=== PATIENT | male | born 1985 | race Caucasian/White ===

== ENCOUNTER 2020-02-10 22:49 | Observation (INO) | payer SELFPAY ==
--- NOTE | 2020-02-10 22:58 | EDM.PDOC ---
ED HPI GENERAL MEDICAL PROBLEM - General Chief Complaint: Drug or Alcohol Abuse Stated Complaint: POSSIBLE OVERDOSE Time Seen by Provider: 02/10/20 22:51 Source of Information: Reports: Patient History Limitations: Reports: No Limitations - History of Present Illness INITIAL COMMENTS - FREE TEXT/NARRATIVE: HISTORY OF PRESENT ILLNESS: Patient is a 34-year-old male who presents with possible overdose. Patient admits to using heroin less than an hour prior to arrival. He feels as though it may have been laced with fentanyl. He admits to IV drug abuse. States he only used "a small amount." Found unresponsive by family members. His sister is a border patrol officer and administered 2 doses of intranasal Narcan and initiated CPR. Patient was alert and oriented x4 when EMS arrived. He had no hypoxic events in route and has been in normal mental status. He denies any suicidal or homicidal ideation. Has mild chest wall soreness at the site of chest compressions but no other retrosternal chest pain. No dyspnea. Denies any trauma or falls. No neck or back pain. No head injury. Denies any weakness or paresthesias. No present changes in vision or speech. REVIEW OF SYSTEMS: Other than the symptoms associated with the present events, the following is reported with regard to recent health: General: (-) fever. HENT: (-) congestion. Respiratory: (-) cough. Cardiovascular: (+) mild chest wall pain. GI: (-) abdominal pain. : (-) urinary complaints. Musculoskeletal: (-) other aches or pains. Endocrine: (-) generalized weakness. Neurological: (-) localized weakness. Skin: scratches to abdomen from chronic scratching PAST MEDICAL HISTORY: reviewed as per nursing notes SOCIAL HISTORY: reviewed as per nursing notes, MEDICATIONS: Per nurse's note ALLERGIES: Per nurse's note, reviewed by me PHYSICAL EXAMINATION: GENERALIZED APPEARANCE: well developed, well nourished in no distress VITAL SIGNS: Per nurse's note, reviewed by me SKIN: Warm, dry; (-) cyanosis; . track cooper. no cellulitis. linear excoriations to abdomen from chronic scratching. mild redness to anterior chest overlying sternum at site of chest compressions. HEAD: (-) scalp swelling, (-) tenderness. EYES: (-) conjunctival pallor, (-) scleral icterus. ENMT: (-) stridor; mucous membranes moist. NECK: (-) tenderness, (-) stiffness, CHEST AND RESPIRATORY: (-) rales, (-) rhonchi, (-) wheezes; breath sounds equal bilaterally. see skin exam. no crepitus, step off or deformity. HEART AND CARDIOVASCULAR: (-) irregularity; (-) murmur, (-) gallop. ABDOMEN AND GI: Soft; (-) tenderness, (-) guarding, (-) rebound, (-) palpable masses, EXTREMITIES: (-) deformity, (-) edema. NEURO AND PSYCH: Alert. Cranial nerves grossly intact; strength symmetric. oriented x 4. nml speech. 5/5+ strength. sensation intact. DIAGNOSTICS: EKG: st at 122 bpm. nml axis no acute st elevation, early repolarization. CXR : as read by radiologist, reviewed by myself Labs reviewed EMERGENCY DEPARTMENT COURSE AND TREATMENT: Patient's condition remained stable during Emergency Department evaluation. He remained awake, alert oriented. Pt concerned he may rebound and requesting observation. As he will likely require minimum of 6 hours of observation, due to 2 doses of Narcan being administered, I feel this is reasonable. Case d/w Dr. Cade who kindly agrees to admit. PLAN AND FOLLOW-UP: Admit chest Pain Score (Numeric/FACES): 2 - Related Data Allergies Allergy/AdvReac Type Severity Reaction Status Date / Time No Known Allergies Allergy Verified 02/10/20 23:02 Home Meds: Home Meds . [No Known Home Meds] 02/10/20 [History] ED ROS GENERAL - Review of Systems Review Of Systems: See Below (see dictation) ED EXAM, GENERAL - Physical Exam Exam: See Below (see dictation) Course - Vital Signs Last Recorded V/S: Last Vital Signs Temp 97.8 F 02/10/20 23:20 Pulse 123 H 02/10/20 23:50 Resp 18 02/10/20 23:50 BP 129/82 02/10/20 23:50 Pulse Ox 95 02/10/20 23:50 - Orders/Labs/Meds Orders: Active Orders 24 hr Category Date Time Status Patient Status [ADT] Stat ADT 02/10/20 23:55 Active EKG Documentation Completion [RC] STAT Care 02/10/20 22:51 Active Labs: Laboratory Tests 02/10/20 02/10/20 02/10/20 Range/Units 23:00 23:00 23:22 WBC 6.63 (4.0-11.0) K/uL RBC 4.57 (4.50-5.90) M/uL Hgb 13.4 (13.0-17.0) g/dL Hct 40.4 (38.0-50.0) % MCV 88.4 (80.0-98.0) fL MCH 29.3 (27.0-32.0) pg MCHC 33.2 (31.0-37.0) g/dL RDW Std Deviation 45.0 (28.0-62.0) fl RDW Coeff of Mike 14 (11.0-15.0) % Plt Count 164 (150-400) K/uL MPV 9.00 (7.40-12.00) fL Neut % (Auto) 80.8 H (48.0-80.0) % Lymph % (Auto) 15.8 L (16.0-40.0) % [place] % (Auto) 2.9 (0.0-15.0) % Eos % (Auto) 0.3 (0.0-7.0) % Baso % (Auto) 0.2 (0.0-1.5) % Neut # (Auto) 5.4 (1.4-5.7) K/uL Lymph # (Auto) 1.1 (0.6-2.4) K/uL [place] # (Auto) 0.2 (0.0-0.8) K/uL Eos # (Auto) 0.0 (0.0-0.7) K/uL Baso # (Auto) 0.0 (0.0-0.1) K/uL Nucleated RBC % 0.0 /100WBC Nucleated RBCs # 0 K/uL Sodium 137 (136-148) mmol/L Potassium 3.4 L (3.5-5.1) mmol/L Chloride 99 (98-107) mmol/L Carbon Dioxide 28.6 (21.0-32.0) mmol/L BUN 12 (7.0-18.0) mg/dL Creatinine 1.1 (0.8-1.3) mg/dL Est Cr Clr Drug Dosing 103.86 mL/min Estimated GFR (MDRD) > 60.0 ml/min Glucose 143 H (74-106) mg/dL Calcium 8.6 (8.5-10.1) mg/dL Salicylates 1.6 (0-20) mg/dL Urine Opiates Screen NEGATIVE (NEGATIVE) Ur Oxycodone Screen NEGATIVE (NEGATIVE) Urine Methadone Screen NEGATIVE (NEGATIVE) Acetaminophen <2.0 ug/mL Ur Barbiturates Screen NEGATIVE (NEGATIVE) Ur Phencyclidine Scrn NEGATIVE (NEGATIVE) Ur Amphetamine Screen NEGATIVE (NEGATIVE) U Methamphetamines Scrn NEGATIVE (NEGATIVE) U Benzodiazepines Scrn NEGATIVE (NEGATIVE) U Cocaine Metab Screen NEGATIVE (NEGATIVE) U Marijuana (THC) Screen NEGATIVE (NEGATIVE) Ethyl Alcohol < 3.0 mg/dL Meds: Medications Discontinued Medications Generic Name Dose Route Start Last Admin Trade Name Freq PRN Reason Stop Dose Admin Acetaminophen 1,000 mg 02/10/20 23:51 02/10/20 23:57 Tylenol Extra Strength PO 02/10/20 23:52 1,000 mg ONETIME ONE Administration Departure - Departure Time of Disposition: 00:09 Disposition: Refer to Observation Condition: Good Clinical Impression: Drug abuse, Overdose - Discharge Information Sepsis Event Note - Focused Exam Vital Signs: Vital Signs Temp Pulse Resp BP Pulse Ox 02/10/20 23:50 123 H 18 129/82 95 02/10/20 23:38 122 H 12 137/65 94 L 02/10/20 23:20 97.8 F 120 H 14 110/77 95 02/10/20 23:05 123 H 14 110/75 94 L 02/10/20 22:51 97 F 127 H 20 135/85 97 Date Exam was Performed: 02/11/20 Time Exam was Performed: 00:07 - My Orders Last 24 Hours: My Active Orders 02/10/20 22:51 EKG Documentation Completion [RC] STAT 02/10/20 23:55 Patient Status [ADT] Stat - Assessment/Plan Last 24 Hours: My Active Orders 02/10/20 22:51 EKG Documentation Completion [RC] STAT 02/10/20 23:55 Patient Status [ADT] Stat
[2020-02-10 23:25] LABS: ACETAMINOPHEN <2.0 ug/mL; BLOOD UREA NITROGEN,BUN 12 mg/dL (7.0-18.0); CARBON DIOXIDE,CO2 28.6 mmol/L (21.0-32.0); CHLORIDE,CL 99 mmol/L (98-107); GLUCOSE RANDOM 143 mg/dL (74-106); POTASSIUM,K 3.4 mmol/L (3.5-5.1); SODIUM,NA 137 mmol/L (136-148)
--- NOTE | 2020-02-10 23:27 | CR ---
INDICATION: Drug overdose TECHNIQUE: Portable upright AP view of the chest. COMPARISON: None FINDINGS: The lungs are clear. There is no sizable pleural effusion or pneumothorax. The cardiomediastinal silhouette is normal. The visualized osseous structures are unremarkable. IMPRESSION: No acute intrathoracic process. Dictated by Andrew Goodrich MD @ Feb 10 2020 11:24PM Signed by Dr. Andrew Goodrich @ Feb 10 2020 11:24PM
[2020-02-10] MEDS ORDERED: Acetaminophen 500 MG Tab PO ONE (23:51)
[2020-02-11] MEDS ORDERED: Acetaminophen 325 MG Tab PO PRN (01:16)
--- NOTE | 2020-02-11 09:03 | PCM.HP.2 ---
H&P History of Present Illness - General Date of Service: 02/11/20 Admit Problem/Dx: Admission Diagnosis/Problem Admission Diagnosis/Problem Overdose of illicit drug - History of Present Illness Initial Comments - Free Text/Narative: 34 yo male with pmh of heroin abuse who presented to the ED following heroin overdose. Patient had moved up her from [place] to be with family as he attempts to quit heroin. He normally takes 1/2 a gram a day. He had not taking anything for several days before stating he took a little bit last night. He became unresponsive and her sister who is a chief lending officer initiated CPR and gave two doses of nasal narcan for which he woke up after. He denies any shortness of breath, fever or chest pain. Headache Pain Score (Numeric/FACES): 5 chest Pain Score (Numeric/FACES): 2 - Related Data Allergies/Adverse Reactions: Allergies Allergy/AdvReac Type Severity Reaction Status Date / Time No Known Allergies Allergy Verified 02/11/20 00:37 Home Medications: Home Meds . [No Known Home Meds] 02/10/20 [History] Past Medical History Gastrointestinal History: Reports: None - Infectious Disease History Infectious Disease History: Reports: Chicken Pox - Past Surgical History GI Surgical History: Reports: Appendectomy Social & Family History - Family History Family Medical History: Noncontributory - Tobacco Use Smoking Status *Q: Current Every Day Smoker Years of Tobacco use: 20 Packs/Tins Daily: 0.5 - Caffeine Use Caffeine Use: Reports: Soda - Recreational Drug Use Recreational Drug Use: Yes Drug Use in Last 12 Months: Yes Recreational Drug Type: Reports: Heroin Recreational Drug Use Frequency: Socially H&P Review of Systems - Review of Systems: Review Of Systems: Comprehensive ROS is negative, except as noted in HPI. Exam - Exam Exam: See Below - Vital Signs Vital Signs: Last Vital Signs Temp 36.4 C 02/11/20 07:20 Pulse 75 02/11/20 07:20 Resp 18 02/11/20 07:20 BP 119/78 02/11/20 07:20 Pulse Ox 99 02/11/20 07:20 Weight: 80.603 kg - Exam General: Alert, Oriented HEENT: Mucosa Moist & [place] Neck: Supple, Trachea Midline Lungs: Clear to Auscultation, Normal Respiratory Effort Cardiovascular: Regular Rate, Regular Rhythm GI/Abdominal Exam: Normal Bowel Sounds, Soft, Non-Tender Extremities: Non-Tender, No Pedal Edema Skin: Warm, Dry, Intact Neurological: Cranial Nerves Intact - Patient Data Lab Results Last 24 hrs: Laboratory Results - last 24 hr 02/10/20 02/10/20 02/10/20 Range/Units 23:00 23:00 23:22 WBC 6.63 (4.0-11.0) K/uL RBC 4.57 (4.50-5.90) M/uL Hgb 13.4 (13.0-17.0) g/dL Hct 40.4 (38.0-50.0) % MCV 88.4 (80.0-98.0) fL MCH 29.3 (27.0-32.0) pg MCHC 33.2 (31.0-37.0) g/dL RDW Std Deviation 45.0 (28.0-62.0) fl RDW Coeff of Mike 14 (11.0-15.0) % Plt Count 164 (150-400) K/uL MPV 9.00 (7.40-12.00) fL Neut % (Auto) 80.8 H (48.0-80.0) % Lymph % (Auto) 15.8 L (16.0-40.0) % [place] % (Auto) 2.9 (0.0-15.0) % Eos % (Auto) 0.3 (0.0-7.0) % Baso % (Auto) 0.2 (0.0-1.5) % Neut # (Auto) 5.4 (1.4-5.7) K/uL Lymph # (Auto) 1.1 (0.6-2.4) K/uL [place] # (Auto) 0.2 (0.0-0.8) K/uL Eos # (Auto) 0.0 (0.0-0.7) K/uL Baso # (Auto) 0.0 (0.0-0.1) K/uL Nucleated RBC % 0.0 /100WBC Nucleated RBCs # 0 K/uL Sodium 137 (136-148) mmol/L Potassium 3.4 L (3.5-5.1) mmol/L Chloride 99 (98-107) mmol/L Carbon Dioxide 28.6 (21.0-32.0) mmol/L BUN 12 (7.0-18.0) mg/dL Creatinine 1.1 (0.8-1.3) mg/dL Est Cr Clr Drug Dosing 103.86 mL/min Estimated GFR (MDRD) > 60.0 ml/min Glucose 143 H (74-106) mg/dL Calcium 8.6 (8.5-10.1) mg/dL Salicylates 1.6 (0-20) mg/dL Urine Opiates Screen NEGATIVE (NEGATIVE) Ur Oxycodone Screen NEGATIVE (NEGATIVE) Urine Methadone Screen NEGATIVE (NEGATIVE) Acetaminophen <2.0 ug/mL Ur Barbiturates Screen NEGATIVE (NEGATIVE) Ur Phencyclidine Scrn NEGATIVE (NEGATIVE) Ur Amphetamine Screen NEGATIVE (NEGATIVE) U Methamphetamines Scrn NEGATIVE (NEGATIVE) U Benzodiazepines Scrn NEGATIVE (NEGATIVE) U Cocaine Metab Screen NEGATIVE (NEGATIVE) U Marijuana (THC) Screen NEGATIVE (NEGATIVE) Ethyl Alcohol < 3.0 mg/dL Result Diagrams: 02/10/20 23:00 02/10/20 23:00 Sepsis Event Note - Evaluation Sepsis Screening Result: No Definite Risk - Focused Exam Vital Signs: Vital Signs Temp Pulse Resp BP Pulse Ox 02/11/20 07:20 36.4 C 75 18 119/78 99 02/11/20 05:18 36.6 C 77 18 108/69 98 02/11/20 00:37 37.2 C 108 H 17 132/73 96 02/11/20 00:30 36.1 C 115 H 16 132/76 96 02/10/20 23:50 123 H 18 129/82 95 02/10/20 23:38 122 H 12 137/65 94 L 02/10/20 23:20 36.6 C 120 H 14 110/77 95 02/10/20 23:05 123 H 14 110/75 94 L 02/10/20 22:51 36.1 C 127 H 20 135/85 97 Date Exam was Performed: 02/11/20 Time Exam was Performed: 08:55 Problem List Initiated/Reviewed/Updated: Yes Orders Last 24hrs: Active Orders 24 hr Category Date Time Status Patient Status [ADT] Stat ADT 02/10/20 23:55 Active EKG Documentation Completion [RC] STAT Care 02/10/20 22:51 Active Overnight Pulse Oximetry [RC] Click to Edit Care 02/11/20 01:15 Active Ready for Discharge [RC] PER UNIT ROUTINE Care 02/11/20 08:54 Active Telemetry Monitoring [Cardiac Monitoring] [RC] Q8H Care 02/11/20 01:21 Active Regular Diet [DIET] Diet 02/11/20 Breakfast Active Acetaminophen [Tylenol] Med 02/11/20 01:16 Active 325 mg PO Q6H PRN Medication Orders Acetaminophen (Tylenol) 325 mg PO Q6H PRN PRN Reason: Headache Assessment/Plan Comment:: 34 yo male admitted for opioid overdose. HE was monitored overnight with no events. This morning he is requesting discharge. He was counselled on narcotic cessation. I suggested Suboxone but the patient is not that interested in drug assisted therapy. He plans on getting a new phone number and states all his heroin that he brought from [place] has been disposed. He was discharged home to have follow up with [facility].
== END 2020-02-11 10:50 | disposition home or self-care (01) ==
LOC: MW.ED 22:49 → MW.MS 23:55
PROVIDERS: ADMIT Internal Medicine; ATTEND Internal Medicine
DX: T40.1X1A Poisoning by heroin, accidental (unintentional), initial encounter (principal); F17.210 Nicotine dependence, cigarettes, uncomplicated
CPT/HCPCS: 36415; 71045; 80048; 80305; 80307; 85025; 93005; A9270; 99284

== ENCOUNTER 2020-09-29 13:56 | Inpatient (IN) | payer SELFPAY ==
[2020-09-29] MEDS ORDERED: Sodium Chloride 0.9% 2.5 ML Syringe FLUSH PRN (14:06)
[2020-09-29] MEDS ORDERED: Sodium Chloride 0.9% 10 ML Syringe FLUSH PRN (14:06)
[2020-09-29] MEDS ORDERED: Lactated Ringers 1,000 ML IV ONE ×2 (14:07)
--- NOTE | 2020-09-29 14:08 | EDM.PDOC ---
ED HPI GENERAL MEDICAL PROBLEM - General Chief Complaint: Trauma Stated Complaint: EMS ARRIVAL Time Seen by Provider: 09/29/20 13:56 Source of Information: Reports: Patient, EMS, Police History Limitations: Reports: Altered Mental Status - History of Present Illness INITIAL COMMENTS - FREE TEXT/NARRATIVE: This is a 35-year-old male with no past medical history presenting with a suspected opiate overdose. He arrives by ambulance. He was reportedly found unresponsive, not breathing by bystanders. Bystanders packed ice packs around him and called 911. When police arrived, they noted that he was apneic and started chest compressions. When paramedics arrived, the patient did have a pulse but was in respiratory arrest. Paramedics administered 1 mg of intranasal naloxone and the patient woke up and started breathing more normally. He reports injecting heroin and fentanyl into his arm around 1320. He arrives the emergency department complaining of feeling nauseated and shaky but denies any pain, recent illness, or injury. ROS: A 10-point review of systems was negative, except as noted in the HPI (or in the ROS section of this note). Past medical history: Reviewed, no additional pertinent history. Surgical history: Reviewed in system, no additional pertinent history. Social history: Reviewed in system, no additional pertinent history. Family history: Reviewed in system, no additional pertinent history. PHYSICAL EXAM Vital signs reviewed. Nursing notes reviewed. Constitutional: Awake, alert, non-distressed. Head: Normocephalic, atraumatic. Eyes: Pupils 3 mm bilaterally, EOMI, conjunctiva normal, no discharge, no scleral icterus. Ears, Nose, Throat: External ears and nose normal, moist oral mucosa. Cardiovascular: Tachycardic, 2+ radial pulse, capillary refill less than 2 seconds. Pulmonary: normal work of breathing, no accessory muscle use. Abdomen/GI: Soft, nontender, nondistended, no guarding or rigidity, no masses. Musculoskeletal: No deformities. Normal passive range of motion of all joints. Integumentary: Appropriate color for ethnicity, warm, dry, no pallor or jaundice, no rash. Neurologic: Alert, answering questions appropriately, normal speech, no facial droop, moving all extremities well. Psychiatric: Appropriate mood and affect, normal thought process. This patient was seen and evaluated during the 2019 SARS-CoV-2 novel coronavirus pandemic period. Community viral transmission is ongoing at time of this encounter and the emergency department is operating under pandemic response procedures. - Related Data Allergies Allergy/AdvReac Type Severity Reaction Status Date / Time No Known Allergies Allergy Verified 09/29/20 14:06 Home Meds: Home Meds . [No Known Home Meds] 02/10/20 [History] Past Medical History Gastrointestinal History: Reports: None - Infectious Disease History Infectious Disease History: Reports: Chicken Pox - Past Surgical History GI Surgical History: Reports: Appendectomy Social & Family History - Family History Family Medical History: No Pertinent Family History - Caffeine Use Caffeine Use: Reports: Soda Review of Systems - Review of Systems Review Of Systems: See Below ED EXAM, GENERAL - Physical Exam Exam: See Below #1 Interpretation EKG Interpretation Comments: 12-Lead ECG Interpretation Acquired: 2:28 PM Rhythm: Sinus tachycardia Rate: 118 bpm Carter: Normal Intervals: Normal Ectopy: None RV Strain: No obvious RV strain pattern. ST Segments/T-Waves: No notable changes Acute Ischemic Changes: None apparent Interpretation: No STEMI Course - Vital Signs Text/Narrative:: 35-year-old male presenting after a likely opiate overdose. Upon arrival to the emergency department patient is tachycardic, jittery, and nauseated. Differential diagnosis includes but is not limited to: Opiate overdose, alcohol intoxication, seizure, suicide attempt, electrolyte disturbance, arrhythmia, cardiac arrest, etc. He appears to be in opioid withdrawal after receiving naloxone. Moved over to the ED bed. IV access established, noted to be mildly hypothermic by core temperature, he was packed in ice by bystanders. We administered 2 L of warmed IV fluids and placed him on the bear hugger with warm blankets. He is nauseated and we will give him ondansetron and some haloperidol to help with his withdrawal symptoms. Labs sent off. Twelve-lead EKG shows sinus tachycardia, no ischemia 3:03 PM: CBC reassuring. Lactate is 9.5. Metabolic panel shows creatinine of 1.9, BUN 29, carbon dioxide 19.7. Glucose 119. CK 604, troponin 0 0.084, AST 876, ALT 95. Alcohol is undetectably low. Awaiting chest x-ray read. We will plan to recheck troponin, CK, metabolic panel, and lactate after fluids. 3:25 PM: Chest x-ray shows diffuse airspace disease on the right favoring post CPR pulmonic contusion versus pneumonia. 3:43 PM: We are redrawing labs. Lactate is down from 9.5-3.2. Patient is resting comfortably. 1650: Lactate down to 3.2. Troponin essentially unchanged. Creatinine down from 1.9 to 1.4. AST/ALT improving. CK down from 604 to 432. 5:34 PM: Patient is mildly hypoxic to the low 90s. He is required nasal cannula oxygen. His chest x-ray was concerning for possible pulmonary contusion after receiving CPR. With his laboratory abnormalities including elevated troponin and mild hypoxia, I would favor admission to the hospital and overnight observation. Page out to the hospitalist Dr. Cade, Covid test pending. 5:40 PM: COVID testing returned positive. Patient continues to require low-flow nasal cannula oxygen. I discussed the case with Dr. Silver Cade by phone who agrees to admit the patient to ICU on observation status. Last Recorded V/S: Last Vital Signs Temp 35.8 C L 09/29/20 13:56 Pulse 112 H 09/29/20 15:42 Resp 18 09/29/20 15:42 BP 98/52 L 09/29/20 15:42 Pulse Ox 95 09/29/20 15:42 - Orders/Labs/Meds Orders: Active Orders 24 hr Category Date Time Status Admission Status [Patient Status] [ADT] Stat ADT 09/29/20 17:39 Active Cardiac Monitoring [RC] . DIRECTED Care 09/29/20 14:06 Active EKG 12 Lead [EKG Documentation Completion] [RC] STAT Care 09/29/20 14:07 Active Pulse Oximetry [RC] ASDIRECTED Care 09/29/20 14:06 Active Sodium Chloride 0.9% [Saline Flush] Med 09/29/20 14:06 Active 10 ml FLUSH ASDIRECTED PRN Sodium Chloride 0.9% [Saline Flush] Med 09/29/20 14:06 Active 2.5 ml FLUSH ASDIRECTED PRN Saline Lock Insert [OM.PC] Stat Oth 09/29/20 14:06 Ordered Medication Orders Sodium Chloride (Saline Flush) 10 ml FLUSH ASDIRECTED PRN PRN Reason: Keep Vein Open Last Admin: 09/29/20 14:20 Dose: 10 ml Documented by: ESTELA Sodium Chloride (Saline Flush) 2.5 ml FLUSH ASDIRECTED PRN PRN Reason: Keep Vein Open Last Admin: 09/29/20 14:20 Dose: 2.5 ml Documented by: ESTELA Labs: Laboratory Tests 09/29/20 09/29/20 09/29/20 Range/Units 14:00 14:00 14:00 WBC 10.37 (4.0-11.0) K/uL RBC 5.31 (4.50-5.90) M/uL Hgb 16.0 (13.0-17.0) g/dL Hct 49.5 (38.0-50.0) % MCV 93.2 (80.0-98.0) fL MCH 30.1 (27.0-32.0) pg MCHC 32.3 (31.0-37.0) g/dL RDW Std Deviation 44.3 (28.0-62.0) fl RDW Coeff of Mike 13 (11.0-15.0) % Plt Count 256 (150-400) K/uL MPV 10.00 (7.40-12.00) fL Neut % (Auto) 74.2 (48.0-80.0) % Lymph % (Auto) 18.8 (16.0-40.0) % [place] % (Auto) 6.2 (0.0-15.0) % Eos % (Auto) 0.5 (0.0-7.0) % Baso % (Auto) 0.3 (0.0-1.5) % Neut # (Auto) 7.7 H (1.4-5.7) K/uL Lymph # (Auto) 2.0 (0.6-2.4) K/uL [place] # (Auto) 0.6 (0.0-0.8) K/uL Eos # (Auto) 0.1 (0.0-0.7) K/uL Baso # (Auto) 0.0 (0.0-0.1) K/uL Nucleated RBC % 0.0 /100WBC Nucleated RBCs # 0 K/uL Lactate 9.5 H* (0.20-2.00) mmol/L Sodium 143 (136-148) mmol/L Potassium 4.6 (3.5-5.1) mmol/L Chloride 104 (98-107) mmol/L Carbon Dioxide 19.7 L (21.0-32.0) mmol/L BUN 29 H (7.0-18.0) mg/dL Creatinine 1.9 H (0.8-1.3) mg/dL Est Cr Clr Drug Dosing 56.03 mL/min Estimated GFR (MDRD) 40.5 ml/min Glucose 119 H (74-106) mg/dL Calcium 9.2 (8.5-10.1) mg/dL Total Bilirubin 0.3 (0.2-1.0) mg/dL AST 76 H (15-37) IU/L ALT 95 H (14-63) IU/L Alkaline Phosphatase 105 (46-116) U/L Creatine Kinase 604 H (26-308) U/L Troponin I 0.084 H* (0.000-0.056) ng/mL Total Protein 8.2 (6.4-8.2) g/dL Albumin 3.9 (3.4-5.0) g/dL Globulin 4.3 H (2.6-4.0) g/dL Albumin/Globulin Ratio 0.9 (0.9-1.6) Ethyl Alcohol < 3.0 mg/dL SARS-CoV-2 RNA (LYNNETTE) (NEGATIVE) 09/29/20 09/29/20 09/29/20 Range/Units 15:22 15:22 17:44 WBC (4.0-11.0) K/uL RBC (4.50-5.90) M/uL Hgb (13.0-17.0) g/dL Hct (38.0-50.0) % MCV (80.0-98.0) fL MCH (27.0-32.0) pg MCHC (31.0-37.0) g/dL RDW Std Deviation (28.0-62.0) fl RDW Coeff of Mike (11.0-15.0) % Plt Count (150-400) K/uL MPV (7.40-12.00) fL Neut % (Auto) (48.0-80.0) % Lymph % (Auto) (16.0-40.0) % [place] % (Auto) (0.0-15.0) % Eos % (Auto) (0.0-7.0) % Baso % (Auto) (0.0-1.5) % Neut # (Auto) (1.4-5.7) K/uL Lymph # (Auto) (0.6-2.4) K/uL [place] # (Auto) (0.0-0.8) K/uL Eos # (Auto) (0.0-0.7) K/uL Baso # (Auto) (0.0-0.1) K/uL Nucleated RBC % /100WBC Nucleated RBCs # K/uL Lactate 3.2 H* (0.20-2.00) mmol/L Sodium 142 (136-148) mmol/L Potassium 4.1 (3.5-5.1) mmol/L Chloride 108 H (98-107) mmol/L Carbon Dioxide 25.8 (21.0-32.0) mmol/L BUN 30 H (7.0-18.0) mg/dL Creatinine 1.4 H (0.8-1.3) mg/dL Est Cr Clr Drug Dosing 76.04 mL/min Estimated GFR (MDRD) 57.7 ml/min Glucose 147 H (74-106) mg/dL Calcium 8.3 L (8.5-10.1) mg/dL Total Bilirubin 0.2 (0.2-1.0) mg/dL AST 55 H (15-37) IU/L ALT 71 H (14-63) IU/L Alkaline Phosphatase 69 (46-116) U/L Creatine Kinase 432 H (26-308) U/L Troponin I 0.083 H* (0.000-0.056) ng/mL Total Protein 5.9 L (6.4-8.2) g/dL Albumin 2.9 L (3.4-5.0) g/dL Globulin 3.0 (2.6-4.0) g/dL Albumin/Globulin Ratio 1.0 (0.9-1.6) Ethyl Alcohol mg/dL SARS-CoV-2 RNA (LYNNETTE) POSITIVE H (NEGATIVE) Meds: Medications Generic Name Dose Route Start Last Admin Trade Name Carlos PRN Reason Stop Dose Admin Sodium Chloride 10 ml 09/29/20 14:06 09/29/20 14:20 Saline Flush FLUSH 10 ml ASDIRECTED PRN Administration Keep Vein Open Sodium Chloride 2.5 ml 09/29/20 14:06 09/29/20 14:20 Saline Flush FLUSH 2.5 ml ASDIRECTED PRN Administration Keep Vein Open Discontinued Medications Generic Name Dose Route Start Last Admin Trade Name Carlos PRN Reason Stop Dose Admin Haloperidol Lactate 5 mg 09/29/20 14:39 09/29/20 14:44 Haldol IM 09/29/20 14:40 5 mg ONETIME ONE Administration Lactated Ringer's 1,000 mls @ 999 mls/hr 09/29/20 14:07 09/29/20 14:17 Ringers, Lactated IV 09/29/20 15:07 999 mls/hr .BOLUS ONE Administration Lactated Ringer's 1,000 mls @ 999 mls/hr 09/29/20 14:07 09/29/20 14:18 Ringers, Lactated IV 09/29/20 15:07 999 mls/hr .BOLUS ONE Administration Ondansetron HCl 4 mg 09/29/20 14:18 09/29/20 14:21 Zofran IVPUSH 09/29/20 14:19 4 mg ONETIME ONE Administration Departure - Departure Time of Disposition: 17:34 Disposition: Refer to Observation Condition: Good Clinical Impression: Hypoxia Opioid overdose Qualifiers: Encounter type: initial encounter Injury intent: undetermined intent Qualified Code(s): T40.2X4A - Poisoning by other opioids, undetermined, initial encounter - Discharge Information Sepsis Event Note (ED) - Focused Exam Vital Signs: Vital Signs Temp Pulse Resp BP Pulse Ox 09/29/20 15:42 112 H 18 98/52 L 95 09/29/20 15:12 152 H 102/56 L 94 L 09/29/20 14:52 115 H 20 113/64 92 L 09/29/20 14:24 119 H 24 H 130/80 94 L 09/29/20 14:14 138/88 09/29/20 13:56 35.8 C L 135 H 28 H 92 L - My Orders Last 24 Hours: My Active Orders 09/29/20 14:06 Cardiac Monitoring [RC] . DIRECTED Pulse Oximetry [RC] ASDIRECTED Sodium Chloride 0.9% [Saline Flush] 10 ml FLUSH ASDIRECTED PRN Sodium Chloride 0.9% [Saline Flush] 2.5 ml FLUSH ASDIRECTED PRN Saline Lock Insert [OM.PC] Stat 09/29/20 14:07 EKG 12 Lead [EKG Documentation Completion] [RC] STAT 09/29/20 17:39 Admission Status [Patient Status] [ADT] Stat - Assessment/Plan Last 24 Hours: My Active Orders 09/29/20 14:06 Cardiac Monitoring [RC] . DIRECTED Pulse Oximetry [RC] ASDIRECTED Sodium Chloride 0.9% [Saline Flush] 10 ml FLUSH ASDIRECTED PRN Sodium Chloride 0.9% [Saline Flush] 2.5 ml FLUSH ASDIRECTED PRN Saline Lock Insert [OM.PC] Stat 09/29/20 14:07 EKG 12 Lead [EKG Documentation Completion] [RC] STAT 09/29/20 17:39 Admission Status [Patient Status] [ADT] Stat
[2020-09-29] MEDS ORDERED: Ondansetron 4 MG/2 ML SDV IVPUSH ONE (14:18)
[2020-09-29 14:38] LABS: BLOOD UREA NITROGEN,BUN 29 mg/dL (7.0-18.0); CARBON DIOXIDE,CO2 19.7 mmol/L (21.0-32.0); CHLORIDE,CL 104 mmol/L (98-107); GLUCOSE RANDOM 119 mg/dL (74-106); POTASSIUM,K 4.6 mmol/L (3.5-5.1); SODIUM,NA 143 mmol/L (136-148)
[2020-09-29] MEDS ORDERED: Haloperidol Lactate 5 MG/ML SDV IM ONE (14:39)
--- NOTE | 2020-09-29 15:17 | CR ---
INDICATION: Post CPR with chest pain COMPARISON: None TECHNIQUE: Single-view chest radiograph FINDINGS: TUBES AND LINES: None. HEART AND MEDIASTINUM: The heart size is normal. The mediastinal contour appears normal for patient age. LUNGS AND PLEURAL SPACES: Diffuse airspace disease on the right especially perihilar and right upper lobe.This probably represents pulmonic contusion associated with chest compressions though there are other possibilities such as pre-existing pneumonia or aspiration. I see no pleural effusion or pneumothorax. OSSEOUS STRUCTURES: I see no rib fractures. However, the anterior rib fractures that often occur in CPR or difficult to demonstrate on plain film IMPRESSION: 1. Diffuse airspace disease on the right favor post CPR pulmonic contusion though pre-existing disease such as pneumonia or aspiration are other possibilities. 2. No visible pleural effusion or pneumothorax. 3. I see no rib fractures. The anterior rib fractures that are most common with CPR are difficult to visualize by plain film. Dictated by Alexys Lane MD @ Sep 29 2020 3:13PM Signed by Dr. Alexys Lane @ Sep 29 2020 3:16PM
[2020-09-29 16:08] LABS: CARBON DIOXIDE,CO2 25.8 mmol/L (21.0-32.0); POTASSIUM,K 4.1 mmol/L (3.5-5.1)
[2020-09-29] MEDS ORDERED: Enoxaparin 40 MG/0.4 ML Syringe SUBCUT SCH (23:00)
[2020-09-29] MEDS ORDERED: Dexamethasone 4 MG Tab PO SCH (23:00)
--- NOTE | 2020-09-29 23:02 | PN ---
THC Physician - Brief Progress [id number]/02/2020 22:54[facility] Sara Shaver, [place] - [facility] ([facility]) - [facility]ALKATYKEN GUTIERREZEdwinDate of Service 09/29/2020 22:54HPI/Even ts of Note Case discussed with RN. 35 year old M found unresponsive and ACLS initiated in the field. Was treated with narcan with good response. Drug screen was positive for methamphetamine. Was not ed to have elevated LA and trops after CPR. LA improving with fluids.AA+O, moving all ext, following commands, protecting airwayCOVID positivePt being managed by the hospitlist at this time.Recs incllu de: hemodynamic monitoring, echo when available, trend Sajan, suplemental O2 PRN, encourage self pronin g, covid treatment protocol, low threshold for abx, follow cultures and LA, GI nd DVT prophylaxis, r eplace lyte as needed, glycemic monitoring, pain control, neuro checks, psych/detox eval when stableI nterventions Minor-Communication with other healthcare providers and/or family
[2020-09-29] MEDS ORDERED: REMDESIVIR 200 MG in Sodium Chloride 0.9% 250 ML IV ONE (23:11)
--- NOTE | 2020-09-29 23:11 | PCM.HP.2 ---
H&P History of Present Illness - General Admit Problem/Dx: Admission Diagnosis/Problem Admission Diagnosis/Problem Opioid overdose Chest Pain Score (Numeric/FACES): 6 - Related Data Allergies/Adverse Reactions: Allergies Allergy/AdvReac Type Severity Reaction Status Date / Time No Known Allergies Allergy Verified 09/29/20 20:15 Home Medications: Home Meds . [No Known Home Meds] 02/10/20 [History] Past Medical History Gastrointestinal History: Reports: None - Infectious Disease History Infectious Disease History: Reports: Chicken Pox - Past Surgical History GI Surgical History: Reports: Appendectomy Social & Family History - Family History Family Medical History: No Pertinent Family History - Tobacco Use Tobacco Use Status *Q: Current Every Day Tobacco User Years of Tobacco use: 15 Packs/Tins Daily: 1 - Caffeine Use Caffeine Use: Reports: Soda - Recreational Drug Use Recreational Drug Use: Yes Recreational Drug Type: Reports: Fentanyl, Heroin Exam - Vital Signs Vital Signs: Last Vital Signs Temp 36.8 C 09/29/20 20:13 Pulse 94 09/29/20 22:00 Resp 10 L 09/29/20 22:00 BP 113/58 L 09/29/20 22:00 Pulse Ox 98 09/29/20 22:00 Weight: 80.876 kg - Patient Data Lab Results Last 24 hrs: Laboratory Results - last 24 hr 09/29/20 09/29/20 09/29/20 Range/Units 14:00 14:00 14:00 WBC 10.37 (4.0-11.0) K/uL RBC 5.31 (4.50-5.90) M/uL Hgb 16.0 (13.0-17.0) g/dL Hct 49.5 (38.0-50.0) % MCV 93.2 (80.0-98.0) fL MCH 30.1 (27.0-32.0) pg MCHC 32.3 (31.0-37.0) g/dL RDW Std Deviation 44.3 (28.0-62.0) fl RDW Coeff of Mike 13 (11.0-15.0) % Plt Count 256 (150-400) K/uL MPV 10.00 (7.40-12.00) fL Neut % (Auto) 74.2 (48.0-80.0) % Lymph % (Auto) 18.8 (16.0-40.0) % [place] % (Auto) 6.2 (0.0-15.0) % Eos % (Auto) 0.5 (0.0-7.0) % Baso % (Auto) 0.3 (0.0-1.5) % Neut # (Auto) 7.7 H (1.4-5.7) K/uL Lymph # (Auto) 2.0 (0.6-2.4) K/uL [place] # (Auto) 0.6 (0.0-0.8) K/uL Eos # (Auto) 0.1 (0.0-0.7) K/uL Baso # (Auto) 0.0 (0.0-0.1) K/uL Nucleated RBC % 0.0 /100WBC Nucleated RBCs # 0 K/uL Lactate 9.5 H* (0.20-2.00) mmol/L Sodium 143 (136-148) mmol/L Potassium 4.6 (3.5-5.1) mmol/L Chloride 104 (98-107) mmol/L Carbon Dioxide 19.7 L (21.0-32.0) mmol/L BUN 29 H (7.0-18.0) mg/dL Creatinine 1.9 H (0.8-1.3) mg/dL Est Cr Clr Drug Dosing 56.03 mL/min Estimated GFR (MDRD) 40.5 ml/min Glucose 119 H (74-106) mg/dL Calcium 9.2 (8.5-10.1) mg/dL Total Bilirubin 0.3 (0.2-1.0) mg/dL AST 76 H (15-37) IU/L ALT 95 H (14-63) IU/L Alkaline Phosphatase 105 (46-116) U/L Creatine Kinase 604 H (26-308) U/L Troponin I 0.084 H* (0.000-0.056) ng/mL Total Protein 8.2 (6.4-8.2) g/dL Albumin 3.9 (3.4-5.0) g/dL Globulin 4.3 H (2.6-4.0) g/dL Albumin/Globulin Ratio 0.9 (0.9-1.6) Urine Opiates Screen (NEGATIVE) Ur Oxycodone Screen (NEGATIVE) Urine Methadone Screen (NEGATIVE) Ur Barbiturates Screen (NEGATIVE) Ur Phencyclidine Scrn (NEGATIVE) Ur Amphetamine Screen (NEGATIVE) U Methamphetamines Scrn (NEGATIVE) U Benzodiazepines Scrn (NEGATIVE) U Cocaine Metab Screen (NEGATIVE) U Marijuana (THC) Screen (NEGATIVE) Ethyl Alcohol < 3.0 mg/dL SARS-CoV-2 RNA (LYNNETTE) (NEGATIVE) 09/29/20 09/29/20 09/29/20 Range/Units 15:22 15:22 17:44 WBC (4.0-11.0) K/uL RBC (4.50-5.90) M/uL Hgb (13.0-17.0) g/dL Hct (38.0-50.0) % MCV (80.0-98.0) fL MCH (27.0-32.0) pg MCHC (31.0-37.0) g/dL RDW Std Deviation (28.0-62.0) fl RDW Coeff of Mike (11.0-15.0) % Plt Count (150-400) K/uL MPV (7.40-12.00) fL Neut % (Auto) (48.0-80.0) % Lymph % (Auto) (16.0-40.0) % [place] % (Auto) (0.0-15.0) % Eos % (Auto) (0.0-7.0) % Baso % (Auto) (0.0-1.5) % Neut # (Auto) (1.4-5.7) K/uL Lymph # (Auto) (0.6-2.4) K/uL [place] # (Auto) (0.0-0.8) K/uL Eos # (Auto) (0.0-0.7) K/uL Baso # (Auto) (0.0-0.1) K/uL Nucleated RBC % /100WBC Nucleated RBCs # K/uL Lactate 3.2 H* (0.20-2.00) mmol/L Sodium 142 (136-148) mmol/L Potassium 4.1 (3.5-5.1) mmol/L Chloride 108 H (98-107) mmol/L Carbon Dioxide 25.8 (21.0-32.0) mmol/L BUN 30 H (7.0-18.0) mg/dL Creatinine 1.4 H (0.8-1.3) mg/dL Est Cr Clr Drug Dosing 76.04 mL/min Estimated GFR (MDRD) 57.7 ml/min Glucose 147 H (74-106) mg/dL Calcium 8.3 L (8.5-10.1) mg/dL Total Bilirubin 0.2 (0.2-1.0) mg/dL AST 55 H (15-37) IU/L ALT 71 H (14-63) IU/L Alkaline Phosphatase 69 (46-116) U/L Creatine Kinase 432 H (26-308) U/L Troponin I 0.083 H* (0.000-0.056) ng/mL Total Protein 5.9 L (6.4-8.2) g/dL Albumin 2.9 L (3.4-5.0) g/dL Globulin 3.0 (2.6-4.0) g/dL Albumin/Globulin Ratio 1.0 (0.9-1.6) Urine Opiates Screen (NEGATIVE) Ur Oxycodone Screen (NEGATIVE) Urine Methadone Screen (NEGATIVE) Ur Barbiturates Screen (NEGATIVE) Ur Phencyclidine Scrn (NEGATIVE) Ur Amphetamine Screen (NEGATIVE) U Methamphetamines Scrn (NEGATIVE) U Benzodiazepines Scrn (NEGATIVE) U Cocaine Metab Screen (NEGATIVE) U Marijuana (THC) Screen (NEGATIVE) Ethyl Alcohol mg/dL SARS-CoV-2 RNA (LYNNETTE) POSITIVE H (NEGATIVE) 09/29/20 09/29/20 09/29/20 Range/Units 18:30 21:48 21:48 WBC (4.0-11.0) K/uL RBC (4.50-5.90) M/uL Hgb (13.0-17.0) g/dL Hct (38.0-50.0) % MCV (80.0-98.0) fL MCH (27.0-32.0) pg MCHC (31.0-37.0) g/dL RDW Std Deviation (28.0-62.0) fl RDW Coeff of Mike (11.0-15.0) % Plt Count (150-400) K/uL MPV (7.40-12.00) fL Neut % (Auto) (48.0-80.0) % Lymph % (Auto) (16.0-40.0) % [place] % (Auto) (0.0-15.0) % Eos % (Auto) (0.0-7.0) % Baso % (Auto) (0.0-1.5) % Neut # (Auto) (1.4-5.7) K/uL Lymph # (Auto) (0.6-2.4) K/uL [place] # (Auto) (0.0-0.8) K/uL Eos # (Auto) (0.0-0.7) K/uL Baso # (Auto) (0.0-0.1) K/uL Nucleated RBC % /100WBC Nucleated RBCs # K/uL Lactate 0.8 (0.20-2.00) mmol/L Sodium (136-148) mmol/L Potassium (3.5-5.1) mmol/L Chloride (98-107) mmol/L Carbon Dioxide (21.0-32.0) mmol/L BUN (7.0-18.0) mg/dL Creatinine (0.8-1.3) mg/dL Est Cr Clr Drug Dosing mL/min Estimated GFR (MDRD) ml/min Glucose (74-106) mg/dL Calcium (8.5-10.1) mg/dL Total Bilirubin (0.2-1.0) mg/dL AST (15-37) IU/L ALT (14-63) IU/L Alkaline Phosphatase (46-116) U/L Creatine Kinase (26-308) U/L Troponin I 0.105 H* (0.000-0.056) ng/mL Total Protein (6.4-8.2) g/dL Albumin (3.4-5.0) g/dL Globulin (2.6-4.0) g/dL Albumin/Globulin Ratio (0.9-1.6) Urine Opiates Screen NEGATIVE (NEGATIVE) Ur Oxycodone Screen NEGATIVE (NEGATIVE) Urine Methadone Screen NEGATIVE (NEGATIVE) Ur Barbiturates Screen NEGATIVE (NEGATIVE) Ur Phencyclidine Scrn NEGATIVE (NEGATIVE) Ur Amphetamine Screen POSITIVE (NEGATIVE) U Methamphetamines Scrn POSITIVE (NEGATIVE) U Benzodiazepines Scrn NEGATIVE (NEGATIVE) U Cocaine Metab Screen NEGATIVE (NEGATIVE) U Marijuana (THC) Screen NEGATIVE (NEGATIVE) Ethyl Alcohol mg/dL SARS-CoV-2 RNA (LYNNETTE) (NEGATIVE) Result Diagrams: 09/29/20 14:00 09/29/20 15:22 Sepsis Event Note - Evaluation Sepsis Screening Result: No Definite Risk - Focused Exam Vital Signs: Vital Signs Temp Pulse Resp BP Pulse Ox 09/29/20 22:00 94 10 L 113/58 L 98 09/29/20 21:00 92 11 L 107/60 97 09/29/20 20:13 36.8 C 91 14 109/59 L 98 09/29/20 15:42 112 H 18 98/52 L 95 09/29/20 15:12 152 H 102/56 L 94 L 09/29/20 14:52 115 H 20 113/64 92 L 09/29/20 14:24 119 H 24 H 130/80 94 L 09/29/20 14:14 138/88 09/29/20 13:56 35.8 C L 135 H 28 H 92 L Orders Last 24hrs: Active Orders 24 hr Category Date Time Status Admission Status [Patient Status] [ADT] Stat ADT 09/29/20 17:39 Active Sodium Chloride 0.9% [Saline Flush] Med 09/29/20 14:06 Active 10 ml FLUSH ASDIRECTED PRN Sodium Chloride 0.9% [Saline Flush] Med 09/29/20 14:06 Active 2.5 ml FLUSH ASDIRECTED PRN Saline Lock Insert [OM.PC] Stat Oth 09/29/20 14:06 Ordered Medication Orders Sodium Chloride (Saline Flush) 10 ml FLUSH ASDIRECTED PRN PRN Reason: Keep Vein Open Last Admin: 09/29/20 14:20 Dose: 10 ml Documented by: ESTELA Sodium Chloride (Saline Flush) 2.5 ml FLUSH ASDIRECTED PRN PRN Reason: Keep Vein Open Last Admin: 09/29/20 14:20 Dose: 2.5 ml Documented by: ESTELA
--- NOTE | 2020-09-29 23:39 | PCM.HP.2 ---
H&P History of Present Illness - General Date of Service: 09/29/20 Admit Problem/Dx: Admission Diagnosis/Problem Admission Diagnosis/Problem Opioid overdose - History of Present Illness Initial Comments - Free Text/Narative: 35 yo male with pmh of heroin abuse who was admitted following heroin overdose. Patient's last admission for herion overdose was in January 2020. PAtient reports he had not used since then. He stated he found some heroin at a store and then used it today. He was found by EMS unresponsive police had initiated CPR with chest compressions, unknown if he was pulseless. Patient was given intranasal narcan and woke up. Patient reports feeling sick for past three days. Chest Pain Score (Numeric/FACES): 6 - Related Data Allergies/Adverse Reactions: Allergies Allergy/AdvReac Type Severity Reaction Status Date / Time No Known Allergies Allergy Verified 09/29/20 20:15 Home Medications: Home Meds dexAMETHasone [Dexamethasone] 6 mg PO Q24H #14 tablet 09/30/20 [Rx] levoFLOXacin [Levaquin] 750 mg PO DAILY #5 tab 09/30/20 [Rx] Past Medical History Gastrointestinal History: Reports: None - Infectious Disease History Infectious Disease History: Reports: Chicken Pox - Past Surgical History GI Surgical History: Reports: Appendectomy Social & Family History - Family History Family Medical History: No Pertinent Family History - Tobacco Use Tobacco Use Status *Q: Current Every Day Tobacco User Years of Tobacco use: 15 Packs/Tins Daily: 1 - Caffeine Use Caffeine Use: Reports: Soda - Recreational Drug Use Recreational Drug Use: Yes Recreational Drug Type: Reports: Fentanyl, Heroin H&P Review of Systems - Review of Systems: Review Of Systems: Comprehensive ROS is negative, except as noted in HPI. Exam - Exam Exam: See Below - Vital Signs Vital Signs: Last Vital Signs Temp 36.8 C 09/29/20 20:13 Pulse 94 09/29/20 22:00 Resp 10 L 09/29/20 22:00 BP 113/58 L 09/29/20 22:00 Pulse Ox 98 09/29/20 22:00 Weight: 80.876 kg - Exam General: Alert, Oriented HEENT: Mucosa Moist & [place] Neck: Supple Lungs: Clear to Auscultation, Normal Respiratory Effort Cardiovascular: Regular Rate, Regular Rhythm GI/Abdominal Exam: Normal Bowel Sounds, Soft, Non-Tender Extremities: Non-Tender, No Pedal Edema Skin: Warm, Dry, Intact Neurological: No: Focal Deficit - Patient Data Lab Results Last 24 hrs: Laboratory Results - last 24 hr 09/29/20 09/29/20 09/29/20 Range/Units 14:00 14:00 14:00 WBC 10.37 (4.0-11.0) K/uL RBC 5.31 (4.50-5.90) M/uL Hgb 16.0 (13.0-17.0) g/dL Hct 49.5 (38.0-50.0) % MCV 93.2 (80.0-98.0) fL MCH 30.1 (27.0-32.0) pg MCHC 32.3 (31.0-37.0) g/dL RDW Std Deviation 44.3 (28.0-62.0) fl RDW Coeff of Mike 13 (11.0-15.0) % Plt Count 256 (150-400) K/uL MPV 10.00 (7.40-12.00) fL Neut % (Auto) 74.2 (48.0-80.0) % Lymph % (Auto) 18.8 (16.0-40.0) % [place] % (Auto) 6.2 (0.0-15.0) % Eos % (Auto) 0.5 (0.0-7.0) % Baso % (Auto) 0.3 (0.0-1.5) % Neut # (Auto) 7.7 H (1.4-5.7) K/uL Lymph # (Auto) 2.0 (0.6-2.4) K/uL [place] # (Auto) 0.6 (0.0-0.8) K/uL Eos # (Auto) 0.1 (0.0-0.7) K/uL Baso # (Auto) 0.0 (0.0-0.1) K/uL Nucleated RBC % 0.0 /100WBC Nucleated RBCs # 0 K/uL Lactate 9.5 H* (0.20-2.00) mmol/L Sodium 143 (136-148) mmol/L Potassium 4.6 (3.5-5.1) mmol/L Chloride 104 (98-107) mmol/L Carbon Dioxide 19.7 L (21.0-32.0) mmol/L BUN 29 H (7.0-18.0) mg/dL Creatinine 1.9 H (0.8-1.3) mg/dL Est Cr Clr Drug Dosing 56.03 mL/min Estimated GFR (MDRD) 40.5 ml/min Glucose 119 H (74-106) mg/dL Calcium 9.2 (8.5-10.1) mg/dL Total Bilirubin 0.3 (0.2-1.0) mg/dL AST 76 H (15-37) IU/L ALT 95 H (14-63) IU/L Alkaline Phosphatase 105 (46-116) U/L Creatine Kinase 604 H (26-308) U/L Troponin I 0.084 H* (0.000-0.056) ng/mL Total Protein 8.2 (6.4-8.2) g/dL Albumin 3.9 (3.4-5.0) g/dL Globulin 4.3 H (2.6-4.0) g/dL Albumin/Globulin Ratio 0.9 (0.9-1.6) Urine Opiates Screen (NEGATIVE) Ur Oxycodone Screen (NEGATIVE) Urine Methadone Screen (NEGATIVE) Ur Barbiturates Screen (NEGATIVE) Ur Phencyclidine Scrn (NEGATIVE) Ur Amphetamine Screen (NEGATIVE) U Methamphetamines Scrn (NEGATIVE) U Benzodiazepines Scrn (NEGATIVE) U Cocaine Metab Screen (NEGATIVE) U Marijuana (THC) Screen (NEGATIVE) Ethyl Alcohol < 3.0 mg/dL SARS-CoV-2 RNA (LYNNETTE) (NEGATIVE) 09/29/20 09/29/20 09/29/20 Range/Units 15:22 15:22 17:44 WBC (4.0-11.0) K/uL RBC (4.50-5.90) M/uL Hgb (13.0-17.0) g/dL Hct (38.0-50.0) % MCV (80.0-98.0) fL MCH (27.0-32.0) pg MCHC (31.0-37.0) g/dL RDW Std Deviation (28.0-62.0) fl RDW Coeff of Mike (11.0-15.0) % Plt Count (150-400) K/uL MPV (7.40-12.00) fL Neut % (Auto) (48.0-80.0) % Lymph % (Auto) (16.0-40.0) % [place] % (Auto) (0.0-15.0) % Eos % (Auto) (0.0-7.0) % Baso % (Auto) (0.0-1.5) % Neut # (Auto) (1.4-5.7) K/uL Lymph # (Auto) (0.6-2.4) K/uL [place] # (Auto) (0.0-0.8) K/uL Eos # (Auto) (0.0-0.7) K/uL Baso # (Auto) (0.0-0.1) K/uL Nucleated RBC % /100WBC Nucleated RBCs # K/uL Lactate 3.2 H* (0.20-2.00) mmol/L Sodium 142 (136-148) mmol/L Potassium 4.1 (3.5-5.1) mmol/L Chloride 108 H (98-107) mmol/L Carbon Dioxide 25.8 (21.0-32.0) mmol/L BUN 30 H (7.0-18.0) mg/dL Creatinine 1.4 H (0.8-1.3) mg/dL Est Cr Clr Drug Dosing 76.04 mL/min Estimated GFR (MDRD) 57.7 ml/min Glucose 147 H (74-106) mg/dL Calcium 8.3 L (8.5-10.1) mg/dL Total Bilirubin 0.2 (0.2-1.0) mg/dL AST 55 H (15-37) IU/L ALT 71 H (14-63) IU/L Alkaline Phosphatase 69 (46-116) U/L Creatine Kinase 432 H (26-308) U/L Troponin I 0.083 H* (0.000-0.056) ng/mL Total Protein 5.9 L (6.4-8.2) g/dL Albumin 2.9 L (3.4-5.0) g/dL Globulin 3.0 (2.6-4.0) g/dL Albumin/Globulin Ratio 1.0 (0.9-1.6) Urine Opiates Screen (NEGATIVE) Ur Oxycodone Screen (NEGATIVE) Urine Methadone Screen (NEGATIVE) Ur Barbiturates Screen (NEGATIVE) Ur Phencyclidine Scrn (NEGATIVE) Ur Amphetamine Screen (NEGATIVE) U Methamphetamines Scrn (NEGATIVE) U Benzodiazepines Scrn (NEGATIVE) U Cocaine Metab Screen (NEGATIVE) U Marijuana (THC) Screen (NEGATIVE) Ethyl Alcohol mg/dL SARS-CoV-2 RNA (LYNNETTE) POSITIVE H (NEGATIVE) 09/29/20 09/29/20 09/29/20 Range/Units 18:30 21:48 21:48 WBC (4.0-11.0) K/uL RBC (4.50-5.90) M/uL Hgb (13.0-17.0) g/dL Hct (38.0-50.0) % MCV (80.0-98.0) fL MCH (27.0-32.0) pg MCHC (31.0-37.0) g/dL RDW Std Deviation (28.0-62.0) fl RDW Coeff of Mike (11.0-15.0) % Plt Count (150-400) K/uL MPV (7.40-12.00) fL Neut % (Auto) (48.0-80.0) % Lymph % (Auto) (16.0-40.0) % [place] % (Auto) (0.0-15.0) % Eos % (Auto) (0.0-7.0) % Baso % (Auto) (0.0-1.5) % Neut # (Auto) (1.4-5.7) K/uL Lymph # (Auto) (0.6-2.4) K/uL [place] # (Auto) (0.0-0.8) K/uL Eos # (Auto) (0.0-0.7) K/uL Baso # (Auto) (0.0-0.1) K/uL Nucleated RBC % /100WBC Nucleated RBCs # K/uL Lactate 0.8 (0.20-2.00) mmol/L Sodium (136-148) mmol/L Potassium (3.5-5.1) mmol/L Chloride (98-107) mmol/L Carbon Dioxide (21.0-32.0) mmol/L BUN (7.0-18.0) mg/dL Creatinine (0.8-1.3) mg/dL Est Cr Clr Drug Dosing mL/min Estimated GFR (MDRD) ml/min Glucose (74-106) mg/dL Calcium (8.5-10.1) mg/dL Total Bilirubin (0.2-1.0) mg/dL AST (15-37) IU/L ALT (14-63) IU/L Alkaline Phosphatase (46-116) U/L Creatine Kinase (26-308) U/L Troponin I 0.105 H* (0.000-0.056) ng/mL Total Protein (6.4-8.2) g/dL Albumin (3.4-5.0) g/dL Globulin (2.6-4.0) g/dL Albumin/Globulin Ratio (0.9-1.6) Urine Opiates Screen NEGATIVE (NEGATIVE) Ur Oxycodone Screen NEGATIVE (NEGATIVE) Urine Methadone Screen NEGATIVE (NEGATIVE) Ur Barbiturates Screen NEGATIVE (NEGATIVE) Ur Phencyclidine Scrn NEGATIVE (NEGATIVE) Ur Amphetamine Screen POSITIVE (NEGATIVE) U Methamphetamines Scrn POSITIVE (NEGATIVE) U Benzodiazepines Scrn NEGATIVE (NEGATIVE) U Cocaine Metab Screen NEGATIVE (NEGATIVE) U Marijuana (THC) Screen NEGATIVE (NEGATIVE) Ethyl Alcohol mg/dL SARS-CoV-2 RNA (LYNNETTE) (NEGATIVE) Result Diagrams: 09/30/20 04:52 09/30/20 04:52 Sepsis Event Note - Evaluation Sepsis Screening Result: No Definite Risk - Focused Exam Vital Signs: Vital Signs Temp Pulse Resp BP Pulse Ox 09/29/20 22:00 94 10 L 113/58 L 98 09/29/20 21:00 92 11 L 107/60 97 09/29/20 20:13 36.8 C 91 14 109/59 L 98 09/29/20 15:42 112 H 18 98/52 L 95 09/29/20 15:12 152 H 102/56 L 94 L 09/29/20 14:52 115 H 20 113/64 92 L 09/29/20 14:24 119 H 24 H 130/80 94 L 09/29/20 14:14 138/88 09/29/20 13:56 35.8 C L 135 H 28 H 92 L Problem List Initiated/Reviewed/Updated: Yes Orders Last 24hrs: Active Orders 24 hr Category Date Time Status Admission Status [Patient Status] [ADT] Stat ADT 09/29/20 17:39 Active CBC WITH AUTO DIFF [HEME] AM Lab 09/30/20 05:11 Ordered COMPREHENSIVE METABOLIC PN,CMP [CHEM] AM Lab 09/30/20 05:11 Ordered Enoxaparin [Lovenox] Med 09/29/20 23:00 Active 40 mg SUBCUT Q24H Sodium Chloride 0.9% [Saline Flush] Med 09/29/20 14:06 Active 10 ml FLUSH ASDIRECTED PRN Sodium Chloride 0.9% [Saline Flush] Med 09/29/20 14:06 Active 2.5 ml FLUSH ASDIRECTED PRN dexAMETHasone Med 09/29/20 23:00 Active 6 mg PO Q24H Saline Lock Insert [OM.PC] Stat Oth 09/29/20 14:06 Ordered Medication Orders Dexamethasone (Dexamethasone) 6 mg PO Q24H TOM Enoxaparin Sodium (Lovenox) 40 mg SUBCUT Q24H TOM Sodium Chloride (Saline Flush) 10 ml FLUSH ASDIRECTED PRN PRN Reason: Keep Vein Open Last Admin: 09/29/20 14:20 Dose: 10 ml Documented by: ESTELA Sodium Chloride (Saline Flush) 2.5 ml FLUSH ASDIRECTED PRN PRN Reason: Keep Vein Open Last Admin: 09/29/20 14:20 Dose: 2.5 ml Documented by: MURDNIC Assessment/Plan Comment:: 35 yo male admitted following heroin overdose possible s/p cardiac/respiratory arrest with chest compressions. His elevated troponin and lactic acid likely due to arrest/rescucitation. He is positive for COVID and is requiring 2 liters NC. We will treat with Dexamethasone. I spoke with patient regarding EUA of Remdesivir and patient declined treatment with remdesivir.
[2020-09-30 05:40] LABS: BLOOD UREA NITROGEN,BUN 18 mg/dL (7.0-18.0); CARBON DIOXIDE,CO2 27.8 mmol/L (21.0-32.0); CHLORIDE,CL 104 mmol/L (98-107); GLUCOSE RANDOM 125 mg/dL (74-106); POTASSIUM,K 4.3 mmol/L (3.5-5.1); SODIUM,NA 135 mmol/L (136-148)
[2020-09-30] MEDS ORDERED: Levofloxacin 250 MG Tab PO ONE (10:31)
--- NOTE | 2020-09-30 10:34 | PCM.DCSUM1 ---
Discharge Summary - Hospital Course Brief History: 35 yo male with pmh of heroin abuse who was admitted following heroin overdose. Patient's last admission for herion overdose was in January 2020. PAtient reports he had not used since then. He stated he found some heroin at a store and then used it today. He was found by EMS unresponsive police had initiated CPR with chest compressions, unknown if he was pulseless. Patient was given intranasal narcan and woke up. Patient reports feeling sick for past three days. Modified [place] Scale: No Symptoms at All Modified [place] Scale Score: 0 - Discharge Data Discharge Date: 09/30/20 Discharge Disposition: Home, Self-Care 01 Condition: Stable - Referral to Home Health Primary Care Physician: PCP None - Patient Summary/Data Hospital Course: Admission diagnoses Opioid overdose Possible aspiration pneumonia COVID-19 Discharge diagnoses Opioid overdose Possible aspiration pneumonia COVID-19 And he was admitted secondary to opioid overdose with subsequent resuscitation with Narcan as well as chest compressions. He was treated with IV fluids as well as dexamethasone secondary to COVID-19. This morning he is off oxygen and lab work have improved. Troponin was elevated which is likely secondary to resuscitative actions. He is requesting discharge home as he is feeling better and does not want to stay in the hospital. We discussed sobriety from heroin and fentanyl he is very vague on where he got this and where he needs to stay away from. This is his second opioid overdose stating he has not used in between January and now when his last overdose was. He is to be for to [facility] for outpatient rehabilitation. He will be discharged home on Levaquin due to possible aspiration pneumonia as well as dexamethasone. He is to return to the ER or clinic concerns should arise sooner. - Patient Instructions Diet: Regular Diet as Tolerated Activity: As Tolerated Driving: Do Not Drive Showering/Bathing: May Shower Notify Provider of: Fever, Increased Pain, Swelling and Redness, Drainage, Nausea and/or Vomiting Other/Special Instructions: You will need to remain in quarantine until 10/09/2020, this accommodates for 10 days of quarantine from positive test or until you no longer have symptoms. If you must go out in public you should wear a mask and limit time where you are going. Limit interactions with other people to decrease the spread of COVID-19. If shortness of breath fever chills diarrhea dizziness or lightheadedness worsen after discharge please seek medical evaluation promptly. Provide [facility] resource number for outpatient rehabilitation. - Discharge Plan *PRESCRIPTION DRUG MONITORING PROGRAM REVIEWED*: No *COPY OF PRESCRIPTION DRUG MONITORING REPORT IN PATIENT [place]: No Prescriptions/Med Rec: dexAMETHasone [Dexamethasone] 6 mg PO Q24H #14 tablet levoFLOXacin [Levaquin] 750 mg PO DAILY #5 tab Home Medications: Home Meds dexAMETHasone [Dexamethasone] 6 mg PO Q24H #14 tablet 09/30/20 [Rx] levoFLOXacin [Levaquin] 750 mg PO DAILY #5 tab 09/30/20 [Rx] Oxygen Therapy Mode: Room Air Patient Handouts: COVID-19, Substance Use Disorder, COVID-19: How to Protect Yourself and Others - CDC, Levofloxacin tablets, Opioid Overdose, Dexamethasone tablets, Prevent the Spread of COVID-19 if You Are Sick - CDC Referrals: PCP,None [Primary Care Provider] - (Arrange follow-up appointment with any provider in 7 to 10 days.) Trip King MD [Physician] - 10/12/20 3:00 pm - Discharge Summary/Plan Comment DC Time >30 min.: No - Patient Data Vitals - Most Recent: Last Vital Signs Temp 98.7 F 09/30/20 04:00 Pulse 78 09/30/20 07:00 Resp 13 09/30/20 07:00 BP 120/55 L 09/30/20 07:00 Pulse Ox 95 09/30/20 07:00 Weight - Most Recent: 80.7 kg I&O - Last 24 hours: Intake & Output 09/29/20 09/30/20 09/30/20 22:59 06:59 14:59 Intake Total 1050 Balance 1050 Lab Results - Last 24 hrs: Laboratory Results - last 24 hr 09/29/20 09/29/20 09/29/20 Range/Units 14:00 14:00 14:00 WBC 10.37 (4.0-11.0) K/uL RBC 5.31 (4.50-5.90) M/uL Hgb 16.0 (13.0-17.0) g/dL Hct 49.5 (38.0-50.0) % MCV 93.2 (80.0-98.0) fL MCH 30.1 (27.0-32.0) pg MCHC 32.3 (31.0-37.0) g/dL RDW Std Deviation 44.3 (28.0-62.0) fl RDW Coeff of Mike 13 (11.0-15.0) % Plt Count 256 (150-400) K/uL MPV 10.00 (7.40-12.00) fL Neut % (Auto) 74.2 (48.0-80.0) % Lymph % (Auto) 18.8 (16.0-40.0) % [place] % (Auto) 6.2 (0.0-15.0) % Eos % (Auto) 0.5 (0.0-7.0) % Baso % (Auto) 0.3 (0.0-1.5) % Neut # (Auto) 7.7 H (1.4-5.7) K/uL Lymph # (Auto) 2.0 (0.6-2.4) K/uL [place] # (Auto) 0.6 (0.0-0.8) K/uL Eos # (Auto) 0.1 (0.0-0.7) K/uL Baso # (Auto) 0.0 (0.0-0.1) K/uL Nucleated RBC % 0.0 /100WBC Nucleated RBCs # 0 K/uL Lactate 9.5 H* (0.20-2.00) mmol/L Sodium 143 (136-148) mmol/L Potassium 4.6 (3.5-5.1) mmol/L Chloride 104 (98-107) mmol/L Carbon Dioxide 19.7 L (21.0-32.0) mmol/L BUN 29 H (7.0-18.0) mg/dL Creatinine 1.9 H (0.8-1.3) mg/dL Est Cr Clr Drug Dosing 56.03 mL/min Estimated GFR (MDRD) 40.5 ml/min Glucose 119 H (74-106) mg/dL Calcium 9.2 (8.5-10.1) mg/dL Total Bilirubin 0.3 (0.2-1.0) mg/dL AST 76 H (15-37) IU/L ALT 95 H (14-63) IU/L Alkaline Phosphatase 105 (46-116) U/L Creatine Kinase 604 H (26-308) U/L Troponin I 0.084 H* (0.000-0.056) ng/mL Total Protein 8.2 (6.4-8.2) g/dL Albumin 3.9 (3.4-5.0) g/dL Globulin 4.3 H (2.6-4.0) g/dL Albumin/Globulin Ratio 0.9 (0.9-1.6) Urine Opiates Screen (NEGATIVE) Ur Oxycodone Screen (NEGATIVE) Urine Methadone Screen (NEGATIVE) Ur Barbiturates Screen (NEGATIVE) Ur Phencyclidine Scrn (NEGATIVE) Ur Amphetamine Screen (NEGATIVE) U Methamphetamines Scrn (NEGATIVE) U Benzodiazepines Scrn (NEGATIVE) U Cocaine Metab Screen (NEGATIVE) U Marijuana (THC) Screen (NEGATIVE) Ethyl Alcohol < 3.0 mg/dL SARS-CoV-2 RNA (LYNNETTE) (NEGATIVE) 09/29/20 09/29/20 09/29/20 Range/Units 15:22 15:22 17:44 WBC (4.0-11.0) K/uL RBC (4.50-5.90) M/uL Hgb (13.0-17.0) g/dL Hct (38.0-50.0) % MCV (80.0-98.0) fL MCH (27.0-32.0) pg MCHC (31.0-37.0) g/dL RDW Std Deviation (28.0-62.0) fl RDW Coeff of Mike (11.0-15.0) % Plt Count (150-400) K/uL MPV (7.40-12.00) fL Neut % (Auto) (48.0-80.0) % Lymph % (Auto) (16.0-40.0) % [place] % (Auto) (0.0-15.0) % Eos % (Auto) (0.0-7.0) % Baso % (Auto) (0.0-1.5) % Neut # (Auto) (1.4-5.7) K/uL Lymph # (Auto) (0.6-2.4) K/uL [place] # (Auto) (0.0-0.8) K/uL Eos # (Auto) (0.0-0.7) K/uL Baso # (Auto) (0.0-0.1) K/uL Nucleated RBC % /100WBC Nucleated RBCs # K/uL Lactate 3.2 H* (0.20-2.00) mmol/L Sodium 142 (136-148) mmol/L Potassium 4.1 (3.5-5.1) mmol/L Chloride 108 H (98-107) mmol/L Carbon Dioxide 25.8 (21.0-32.0) mmol/L BUN 30 H (7.0-18.0) mg/dL Creatinine 1.4 H (0.8-1.3) mg/dL Est Cr Clr Drug Dosing 76.04 mL/min Estimated GFR (MDRD) 57.7 ml/min Glucose 147 H (74-106) mg/dL Calcium 8.3 L (8.5-10.1) mg/dL Total Bilirubin 0.2 (0.2-1.0) mg/dL AST 55 H (15-37) IU/L ALT 71 H (14-63) IU/L Alkaline Phosphatase 69 (46-116) U/L Creatine Kinase 432 H (26-308) U/L Troponin I 0.083 H* (0.000-0.056) ng/mL Total Protein 5.9 L (6.4-8.2) g/dL Albumin 2.9 L (3.4-5.0) g/dL Globulin 3.0 (2.6-4.0) g/dL Albumin/Globulin Ratio 1.0 (0.9-1.6) Urine Opiates Screen (NEGATIVE) Ur Oxycodone Screen (NEGATIVE) Urine Methadone Screen (NEGATIVE) Ur Barbiturates Screen (NEGATIVE) Ur Phencyclidine Scrn (NEGATIVE) Ur Amphetamine Screen (NEGATIVE) U Methamphetamines Scrn (NEGATIVE) U Benzodiazepines Scrn (NEGATIVE) U Cocaine Metab Screen (NEGATIVE) U Marijuana (THC) Screen (NEGATIVE) Ethyl Alcohol mg/dL SARS-CoV-2 RNA (LYNNETTE) POSITIVE H (NEGATIVE) 09/29/20 09/29/20 09/29/20 Range/Units 18:30 21:48 21:48 WBC (4.0-11.0) K/uL RBC (4.50-5.90) M/uL Hgb (13.0-17.0) g/dL Hct (38.0-50.0) % MCV (80.0-98.0) fL MCH (27.0-32.0) pg MCHC (31.0-37.0) g/dL RDW Std Deviation (28.0-62.0) fl RDW Coeff of Mike (11.0-15.0) % Plt Count (150-400) K/uL MPV (7.40-12.00) fL Neut % (Auto) (48.0-80.0) % Lymph % (Auto) (16.0-40.0) % [place] % (Auto) (0.0-15.0) % Eos % (Auto) (0.0-7.0) % Baso % (Auto) (0.0-1.5) % Neut # (Auto) (1.4-5.7) K/uL Lymph # (Auto) (0.6-2.4) K/uL [place] # (Auto) (0.0-0.8) K/uL Eos # (Auto) (0.0-0.7) K/uL Baso # (Auto) (0.0-0.1) K/uL Nucleated RBC % /100WBC Nucleated RBCs # K/uL Lactate 0.8 (0.20-2.00) mmol/L Sodium (136-148) mmol/L Potassium (3.5-5.1) mmol/L Chloride (98-107) mmol/L Carbon Dioxide (21.0-32.0) mmol/L BUN (7.0-18.0) mg/dL Creatinine (0.8-1.3) mg/dL Est Cr Clr Drug Dosing mL/min Estimated GFR (MDRD) ml/min Glucose (74-106) mg/dL Calcium (8.5-10.1) mg/dL Total Bilirubin (0.2-1.0) mg/dL AST (15-37) IU/L ALT (14-63) IU/L Alkaline Phosphatase (46-116) U/L Creatine Kinase (26-308) U/L Troponin I 0.105 H* (0.000-0.056) ng/mL Total Protein (6.4-8.2) g/dL Albumin (3.4-5.0) g/dL Globulin (2.6-4.0) g/dL Albumin/Globulin Ratio (0.9-1.6) Urine Opiates Screen NEGATIVE (NEGATIVE) Ur Oxycodone Screen NEGATIVE (NEGATIVE) Urine Methadone Screen NEGATIVE (NEGATIVE) Ur Barbiturates Screen NEGATIVE (NEGATIVE) Ur Phencyclidine Scrn NEGATIVE (NEGATIVE) Ur Amphetamine Screen POSITIVE (NEGATIVE) U Methamphetamines Scrn POSITIVE (NEGATIVE) U Benzodiazepines Scrn NEGATIVE (NEGATIVE) U Cocaine Metab Screen NEGATIVE (NEGATIVE) U Marijuana (THC) Screen NEGATIVE (NEGATIVE) Ethyl Alcohol mg/dL SARS-CoV-2 RNA (LYNNETTE) (NEGATIVE) 09/30/20 09/30/20 Range/Units 04:52 04:52 WBC 13.54 H (4.0-11.0) K/uL RBC 4.45 L (4.50-5.90) M/uL Hgb 13.1 (13.0-17.0) g/dL Hct 39.9 (38.0-50.0) % MCV 89.7 (80.0-98.0) fL MCH 29.4 (27.0-32.0) pg MCHC 32.8 (31.0-37.0) g/dL RDW Std Deviation 42.4 (28.0-62.0) fl RDW Coeff of Mike 13 (11.0-15.0) % Plt Count 193 (150-400) K/uL MPV 10.00 (7.40-12.00) fL Neut % (Auto) 92.3 H (48.0-80.0) % Lymph % (Auto) 5.8 L (16.0-40.0) % [place] % (Auto) 1.8 (0.0-15.0) % Eos % (Auto) 0.0 (0.0-7.0) % Baso % (Auto) 0.1 (0.0-1.5) % Neut # (Auto) 12.5 H (1.4-5.7) K/uL Lymph # (Auto) 0.8 (0.6-2.4) K/uL Hubbard # (Auto) 0.3 (0.0-0.8) K/uL Eos # (Auto) 0.0 (0.0-0.7) K/uL Baso # (Auto) 0.0 (0.0-0.1) K/uL Nucleated RBC % 0.0 /100WBC Nucleated RBCs # 0 K/uL Lactate (0.20-2.00) mmol/L Sodium 135 L (136-148) mmol/L Potassium 4.3 (3.5-5.1) mmol/L Chloride 104 (98-107) mmol/L Carbon Dioxide 27.8 (21.0-32.0) mmol/L BUN 18 (7.0-18.0) mg/dL Creatinine 0.9 (0.8-1.3) mg/dL Est Cr Clr Drug Dosing 103.38 mL/min Estimated GFR (MDRD) > 60.0 ml/min Glucose 125 H (74-106) mg/dL Calcium 8.4 L (8.5-10.1) mg/dL Total Bilirubin 0.4 (0.2-1.0) mg/dL AST 44 H (15-37) IU/L ALT 77 H (14-63) IU/L Alkaline Phosphatase 60 (46-116) U/L Creatine Kinase (26-308) U/L Troponin I (0.000-0.056) ng/mL Total Protein 6.8 (6.4-8.2) g/dL Albumin 3.2 L (3.4-5.0) g/dL Globulin 3.6 (2.6-4.0) g/dL Albumin/Globulin Ratio 0.9 (0.9-1.6) Urine Opiates Screen (NEGATIVE) Ur Oxycodone Screen (NEGATIVE) Urine Methadone Screen (NEGATIVE) Ur Barbiturates Screen (NEGATIVE) Ur Phencyclidine Scrn (NEGATIVE) Ur Amphetamine Screen (NEGATIVE) U Methamphetamines Scrn (NEGATIVE) U Benzodiazepines Scrn (NEGATIVE) U Cocaine Metab Screen (NEGATIVE) U Marijuana (THC) Screen (NEGATIVE) Ethyl Alcohol mg/dL SARS-CoV-2 RNA (LYNNETTE) (NEGATIVE) Med Orders - Current: Current Medications Dexamethasone (Dexamethasone) 6 mg PO Q24H [facility] Last Admin: 09/29/20 23:44 Dose: 6 mg Documented by: Enoxaparin Sodium (Lovenox) 40 mg SUBCUT Q24H [facility] Last Admin: 09/29/20 23:44 Dose: 40 mg Documented by: Levofloxacin (Levaquin) 750 mg PO ONETIME ONE Stop: 09/30/20 10:32 Sodium Chloride (Saline Flush) 10 ml FLUSH ASDIRECTED PRN PRN Reason: Keep Vein Open Last Admin: 09/29/20 14:20 Dose: 10 ml Documented by: Sodium Chloride (Saline Flush) 2.5 ml FLUSH ASDIRECTED PRN PRN Reason: Keep Vein Open Last Admin: 09/29/20 14:20 Dose: 2.5 ml Documented by: Discontinued Medications Haloperidol Lactate (Haldol) 5 mg IM ONETIME ONE Stop: 09/29/20 14:40 Last Admin: 09/29/20 14:44 Dose: 5 mg Documented by: Lactated Ringer's (Ringers, Lactated) 1,000 mls @ 999 mls/hr IV .BOLUS ONE Stop: 09/29/20 15:07 Last Admin: 09/29/20 14:17 Dose: 999 mls/hr Documented by: Lactated Ringer's (Ringers, Lactated) 1,000 mls @ 999 mls/hr IV .BOLUS ONE Stop: 09/29/20 15:07 Last Admin: 09/29/20 14:18 Dose: 999 mls/hr Documented by: Remdesivir 100 mg/ Sodium (Chloride) 100 mls @ 100 mls/hr IV Q24H TOM Stop: 10/03/20 23:59 Remdesivir 200 mg/ Sodium (Chloride) 250 mls @ 250 mls/hr IV ONETIME ONE Stop: 09/29/20 23:12 Last Admin: 09/29/20 23:38 Dose: Not Given Documented by: Ondansetron HCl (Zofran) 4 mg IVPUSH ONETIME ONE Stop: 09/29/20 14:19 Last Admin: 09/29/20 14:21 Dose: 4 mg Documented by: - Exam General: Reports: Alert, Oriented, Cooperative Lungs: Reports: Clear to Auscultation, Normal Respiratory Effort Cardiovascular: Reports: Regular Rate, Regular Rhythm GI/Abdominal Exam: Normal Bowel Sounds, Soft, Non-Tender Extremities: Normal Inspection, Normal Range of Motion, Non-Tender Neurological: Reports: No New Focal Deficit Psy/Mental Status: Reports: Alert, Normal Affect, Normal Mood
[2020-09-30] MEDS ORDERED: REMDESIVIR 100 MG in Sodium Chloride 0.9% 100 ML IV SCH (23:00)
== END 2020-09-30 12:05 | disposition home or self-care (01) | DRG 917 ==
LOC: MW.ED 13:56 → MW.ICU 17:52 → OBSVTOIN 17:52 → MW.ICU 19:07
PROVIDERS: ADMIT Internal Medicine; ATTEND Internal Medicine
DX: T40.1X1A Poisoning by heroin, accidental (unintentional), initial encounter (principal); U07.1 COVID-19; J69.0 Pneumonitis due to inhalation of food and vomit; F17.200 Nicotine dependence, unspecified, uncomplicated; Z90.49 Acquired absence of other specified parts of digestive tract
CPT/HCPCS: 36415; 71045; 71045-26; 80053; 80305-QW; 80307; 82550; 83605; 84484; 85025; 93005; 93010; 96372; 96374; 99222; 99238; 99284; 99285-25; A9270-GY; J1630; J1650; J2405; J7120; J8540; U0002

== ENCOUNTER 2020-11-16 10:59 | Emergency (ER) | payer SELFPAY ==
--- NOTE | 2020-11-16 11:20 | EDM.PDOC ---
ED HPI GENERAL MEDICAL PROBLEM - General Chief Complaint: General Stated Complaint: LT SIDE FACE SWOLLEN Time Seen by Provider: 11/16/20 11:02 Source of Information: Reports: Patient History Limitations: Reports: No Limitations - History of Present Illness INITIAL COMMENTS - FREE TEXT/NARRATIVE: 35-year-old male presents with left facial swelling and pain since yesterday. Denies fever, chills, eye pain, intraoral pain or dental pain. Pain is mild, nonradiating, localized to the left maxilla, no alleviating or exacerbating factors, dull aching sensation. ROS: A 10-point review of systems, other than pertinent positives and negatives as stated per HPI, is otherwise negative Past medical history: No additional pertinent history Past Surgical history: No additional pertinent history Social history: No additional pertinent history Family history: No additional pertinent history PHYSICAL EXAM General: AOx4, GCS = 15, No distress HEENT: dry mucous membrane, left facial maxillary superficial cellulitis, no intraoral abscess. EOMI, no pain with ocular range of motion. No exophthalmos. Neck: supple, no meningismus, no Kernig or Brudzinski Cardiac: S1S2 RRR Respiratory: CTAB, no crackles or rales, no wheezing Abdomen: Soft, nontender, no rebound or guarding, nondistended, no pulsatile mass. Back: nontender Musculoskeletal: NVI distally, no deformity Neuro: No focal deficits, CN 2 - 12 WNL. Left Face/Facial Pain Score (Numeric/FACES): 4 - Related Data Allergies Allergy/AdvReac Type Severity Reaction Status Date / Time No Known Allergies Allergy Verified 11/16/20 11:19 Home Meds: Home Meds Sodium Chloride [Saline Nasal [place]] 90 ml NS QID #1 spray 11/16/20 [Rx] Sulfamethoxazole/Trimethoprim [Bactrim Ds Tablet] 2 each PO BID #40 tablet 11/16/20 [Rx] cephALEXin [Keflex] 500 mg PO Q8H #30 cap 11/16/20 [Rx] Past Medical History Gastrointestinal History: Reports: None - Infectious Disease History Infectious Disease History: Reports: Chicken Pox - Past Surgical History GI Surgical History: Reports: Appendectomy Social & Family History - Family History Family Medical History: No Pertinent Family History - Caffeine Use Caffeine Use: Reports: Soda ED ROS GENERAL - Review of Systems Review Of Systems: See Below (see dictation) ED EXAM, GENERAL - Physical Exam Exam: See Below (see dictation) Course - Vital Signs Last Recorded V/S: Last Vital Signs Temp 97.7 F 11/16/20 11:20 Pulse 91 11/16/20 11:20 Resp 16 11/16/20 11:20 BP 123/65 11/16/20 11:20 Pulse Ox 96 11/16/20 11:20 - Re-Assessments/Exams Free Text/Narrative Re-Assessment/Exam: 11/16/20 11:19 I advised the patient to return to the ER for reevaluation if symptoms worsened, including fever, worsening pain, or any other worrisome symptoms. I instructed the patient to follow up with their PCP within 2-3 days. MEDICAL DECISION MAKING: I reviewed the patients past medical records, lab and radiographic findings. I discussed the case with the patient. My differential diagnosis included: Facial cellulitis, sinusitis, periorbital cellulitis. Patient is afebrile with no tachycardia, I do not suspect underlying significant infection warranting imaging studies. i do not suspect orbital cellulitis. He had no exophthalmos or pain with ocular range of motion. Departure - Departure Time of Disposition: 11:17 Disposition: Home, Self-Care 01 Condition: Good Clinical Impression: Facial cellulitis - Discharge Information *PRESCRIPTION DRUG MONITORING PROGRAM REVIEWED*: Not Applicable *COPY OF PRESCRIPTION DRUG MONITORING REPORT IN PATIENT [place]: Not Applicable Prescriptions: Sulfamethoxazole/Trimethoprim [Bactrim Ds Tablet] 2 each PO BID #40 tablet cephALEXin [Keflex] 500 mg PO Q8H #30 cap Sodium Chloride [Saline Nasal [place]] 90 ml NS QID #1 spray Instructions: Cellulitis, Adult Referrals: PCP,None [Primary Care Provider] - Forms: ED Department Discharge Additional Instructions: The need for follow-up, as well as the timing and circumstances, are variable depending upon the specifics of your emergency department visit. If you don't have a primary care physician on staff, we will provide you with a referral. We always advise you to contact your personal physician following an emergency department visit to inform them of the circumstance of the visit and for follow-up with them and/or the need for any referrals to a consulting specialist. The emergency department will also refer you to a specialist when appropriate. This referral assures that you have the opportunity for follow-up care with a specialist. All of these measure are taken in an effort to provide you with optimal care, which includes your follow-up. Under all circumstances we always encourage you to contact your private physician who remains a resource for coordinating your care. When calling for follow-up care, please make the office aware that this follow-up is from your recent emergency room visit. If for any reason you are refused follow-up, please contact the [facility] Emergency Department at and asked to speak to the emergency department charge nurse. If you do not have a primary care doctor, please follow up with the clinics below within 3-5 days. [facility] [address] [place], [place] [id number] [facility] [address] [place] [address] Sepsis Event Note (ED) - Focused Exam Vital Signs: Vital Signs Temp Pulse Resp BP Pulse Ox 11/16/20 11:20 97.7 F 91 16 123/65 96
== END 2020-11-16 11:40 | disposition home or self-care (01) ==
LOC: MW.ED 10:59
DX: L03.211 Cellulitis of face (principal)
CPT/HCPCS: 99283

== ENCOUNTER 2022-12-26 16:46 | Emergency (ER) | payer MEDICAID, OTHER | END 2022-12-26 17:10 | LOC: MW.ED 16:46 | DX: Z02.89 Encounter for other administrative examinations (principal); Z72.0 Tobacco use | CPT/HCPCS: 99282; 99283 ==

== ENCOUNTER 2023-07-23 09:47 | Emergency (ER) | payer MEDICAID ==
[2023-07-23] MEDS ORDERED: Aspirin 81 MG Tab.Chew PO ONE (09:51)
[2023-07-23] MEDS ORDERED: Sodium Chloride 0.9% 1,000 ML IV ONE (09:51)
[2023-07-23 10:14] LABS: APPEARANCE,URINE CLEAR; BILIRUBIN,URINE NEGATIVE (NEGATIVE); COLOR,URINE YELLOW; GLUCOSE,URINE NEGATIVE (NEGATIVE); KETONES,URINE NEGATIVE (NEGATIVE); LEUKOCYTE ESTERASE,URINE NEGATIVE (NEGATIVE); NITRITE,URINE NEGATIVE (NEGATIVE); OCCULT BLOOD,URINE NEGATIVE (NEGATIVE); PROTEIN,URINE NEGATIVE (NEGATIVE); UROBILINOGEN,URINE 0.2 EU/dL (<2.0)
[2023-07-23 10:22] LABS: AMPHETAMINES SCREEN, URINE PRESUMPTIVE POSITIVE (CUTOFF=500); BARBITURATE SCREEN,URINE NEGATIVE (CUTOFF=200); BENZODIAZEPINES SCREEN,URINE NEGATIVE (CUTOFF=150); BUPRENORPHINE SCREEN,URINE NEGATIVE (CUTOFF=10); METHADONE SCREEN, URINE NEGATIVE (CUTOFF=200); METHAMPHETAMINES SCREEN, URINE PRESUMPTIVE POSITIVE (CUTOFF=500); OXYCODONE SCREEN,URINE NEGATIVE (CUT0FF=100); PCP SCREEN,URINE NEGATIVE (CUTOFF=25); PROPOXYPHENE SCREEN,URINE NEGATIVE (CUTOFF=300); THC SCREEN,URINE 20 NG/ML NEGATIVE (CUTOFF=50)
[2023-07-23 10:29] LABS: BASOPHILS ABSOLUTE AUTO 0.1 K/uL (0.0-0.1); EOSINOPHILS ABSOLUTE AUTO 0.4 K/uL (0.0-0.7); EOSINOPHILS PERCENT AUTO 8.3 % (0.0-7.0); HEMATOCRIT 38.3 % (38.0-50.0); HEMOGLOBIN 12.7 g/dL (13.0-17.0); LYMPHOCYTES PERCENT AUTO 39.6 % (16.0-40.0); MEAN CORPUSCULAR HGB CONC 33.2 g/dL (31.0-37.0); MEAN CORPUSCULAR VOLUME 84.4 fL (80.0-98.0); MONOCYTES ABSOLUTE AUTO 0.6 K/uL (0.0-0.8); MONOCYTES PERCENT AUTO 10.8 % (0.0-15.0); NEUTROPHILS ABSOLUTE AUTO 2.1 K/uL (1.4-5.7); NEUTROPHILS PERCENT AUTO 40.3 % (48.0-80.0); NRBC ABSOLUTE 0 K/uL; PLATELET COUNT,PLT 190 K/uL (150-400); RED BLOOD CELL COUNT 4.54 M/uL (4.50-5.90); WHITE BLOOD CELL COUNT,WBC 5.08 K/uL (4.0-11.0)
[2023-07-23 10:50] LABS: CORONAVIRUS COVID-19 NAA NEGATIVE (NEGATIVE); INFLUENZA A NAA NEGATIVE (NEGATIVE); INFLUENZA B NAA NEGATIVE (NEGATIVE)
[2023-07-23 10:51] LABS: A/G RATIO 0.9 (0.9-1.6); ALBUMIN 3.6 g/dL (3.4-5.0); BILIRUBIN TOTAL 0.3 mg/dL (0.2-1.0); CALCIUM 8.5 mg/dL (8.5-10.1); CARBON DIOXIDE,CO2 29.9 mmol/L (21.0-32.0); CREATININE 0.9 mg/dL (0.8-1.3); EST CRCL DRUG DOSING (CG) 122.15 mL/min; POTASSIUM,K 3.8 mmol/L (3.5-5.1); PROTEIN TOTAL,TP 7.6 g/dL (6.4-8.2); TSH ULTRASENSITIVE 2.02 uIU/mL (0.36-3.74)
== END 2023-07-23 11:09 | disposition home or self-care (01) ==
LOC: MW.ED 09:47
DX: R07.89 Other chest pain (principal); F19.10 Other psychoactive substance abuse, uncomplicated; Z20.822 Contact with and (suspected) exposure to COVID-19
CPT/HCPCS: 0240U; 36415; 71045; 80053; 80305; 81003; 84443; 84484; 85025; 93005; 96360; 99285; A9270; J7030; 93010; 99283

== ENCOUNTER 2023-07-24 09:57 | Emergency (ER) | payer MEDICAID ==
[2023-07-24] MEDS ORDERED: Bacitracin Oint 1 GM U/D Packet TOP ONE (10:37)
[2023-07-24] MEDS ORDERED: Acetaminophen 500 MG Tab PO ONE (10:37)
== END 2023-07-24 11:56 | disposition left against medical advice (07) ==
LOC: MW.ED 09:57
DX: S00.03XA Contusion of scalp, initial encounter (principal); Y04.2XXA Assault by strike against or bumped into by another person, initial encounter
CPT/HCPCS: 70450; 70486; 71046; 72125; 99284; A9270; 99283